=== PATIENT | female | born 1970 | race Caucasian/White ===

== ENCOUNTER → 2016-09-18 | Outpatient (CLI) | payer BC ==
[~2016-09-18] MED LIST: FLUO10CA48 PO; PRLSR20 PO; PROP60CA PO
[2016-09-18 17:36] LABS: BASO % 0.2 %; BASO ABS # 0.02 K/uL (0-0.2); COMPLETE YES; EOS % 1.4 %; HEMATOCRIT 36.2 % (37-47); IG% 0.2 %; LYMPH % 23.6 %; LYMPH ABS # 2.68 K/uL (1.2-3.4); MEAN CELL VOLUME 77.4 fL (80-100); MEAN CORPUSCULAR HEMOGLOBIN 24.8 pg (25-34); MEAN PLATELET VOLUME 9.8 fL (7.4-10.4); MONO % 7.9 %; NEUT % 66.7 %; PLATELET COUNT 351 K/uL (130-400); RED BLOOD COUNT 4.68 M/uL (4.2-5.4); WHITE BLOOD COUNT 11.35 K/uL (4.8-10.8)
[2016-09-18 20:42] LABS: LYME DISEASE AB IGG NEG (NEG); LYME DISEASE AB IGM NEG (NEG)
== END | disposition home or self-care (01) ==
LOC: C.LAB1850 16:32
PROVIDERS: ATTEND Family Medicine
DX: J01.90 Acute sinusitis, unspecified (principal); R52 Pain, unspecified

== ENCOUNTER → 2017-06-02 | Outpatient (CLI) | payer BC ==
--- NOTE | 2017-06-02 15:45 | MAMMOGRAPHY REPORT ---
BILATERAL DIGITAL SCREENING MAMMOGRAM TOMOSYNTHESIS WITH CAD: 06/02/2017 CLINICAL HISTORY: Routine screening. Patient has no complaints. TECHNIQUE: Breast tomosynthesis in addition to standard 2D mammography was performed. Current study was also evaluated with a Computer Aided Detection (CAD) system. COMPARISON: Comparison is made to exam dated: 03/02/2010 mammogram - [facility]. BREAST COMPOSITION: The tissue of both breasts is almost entirely fatty. FINDINGS: No suspicious mass, architectural distortion or cluster of microcalcifications is seen. IMPRESSION: ACR BI-RADS CATEGORY 1: NEGATIVE There is no mammographic evidence of malignancy. A 1 year screening mammogram is recommended. The pa tient will receive written notification of the results. Approximately 10% of breast cancers are not detected with mammography. A negative mammographic report should not delay biopsy if a clinically suggestive mass is present. Samantha knutson/penrad:06/02/2017 14:56:38 Paper Bags Sewing Machine Operator: Aurora BOWMAN(Kimberly)(Estrella)(BD), [facility] letter sent: Normal 1/2 BI-RADS Code: ACR BI-RADS Category 1: Negative
== END | disposition home or self-care (01) ==
LOC: C.MAMM 14:08
PROVIDERS: ATTEND Nurse Practitioner Family
DX: Z12.31 Encounter for screening mammogram for malignant neoplasm of breast (principal)

== ENCOUNTER → 2017-07-09 | Outpatient (CLI) | payer BC ==
[~2017-07-09] MED LIST changes: +OPTIRAY 320 IV PRN
--- NOTE | 2017-07-09 12:31 | DIAGNOSTIC IMAGING REPORT ---
ABD/PELVIS COMBO CLINICAL HISTORY: 46 years-old Female presenting with R10.31, concern for appendicitis versus diverticulitis versus renal stones. TECHNIQUE: Multidetector CT of the abdomen and pelvis was performed before and after the administration of intravenous contrast. IV contrast: 94 mL of Optiray 320. A dose lowering technique was used consistent with the principles of ALARA (as low as reasonably achievable). COMPARISON: 12/07/2013. CT DOSE (mGy.cm): The estimated cumulative dose is 2491.54 mGycm. FINDINGS: Mica Laminating Machine Feeder topogram: Unremarkable. Lung bases: Lung bases clear. Normal heart size. No pericardial or pleural effusion. Liver: Normal morphology. No liver lesion. Patent hepatic vasculature. Biliary: No intrahepatic or extrahepatic biliary ductal dilatation. Normal gallbladder. Pancreas: Normal. Spleen: Normal. Adrenal glands: Normal. Kidneys and ureters: Punctate nonobstructing calculus at the lower pole right kidney. Multiple nonobstructing left renal calculi in the interpolar region and lower pole measuring up to 5 mm. Thinning of the cortex along the posterior interpolar region of the left kidney could suggest reflux nephropathy or prior infection, infarct, or trauma. Few tiny hypodensities too small to characterize but likely cysts. Ureters normal. Bladder: Incompletely evaluated secondary to underdistention. Pelvic organs: Uterus surgically absent. Ovaries normal for age. Bowel: Moderate stool burden in the rectum. Appendix not visualized though no inflammatory changes evident in the right lower quadrant. No bowel wall thickening. No bowel obstruction. Peritoneal cavity: No free fluid or intraperitoneal gas. Lymph nodes: Few scattered subcentimeter lymph nodes noted in the right lower quadrant mesentery without associated inflammatory change. No enlarged lymph nodes in the abdomen or pelvis. Vasculature: Aorta and IVC patent and normal in caliber. Abdominal wall: Normal. Musculoskeletal: Normal. IMPRESSION: 1. No acute intra-abdominal pathology. 2. Bilateral nephrolithiasis. Electronically signed by: Lei Hargrove M.D. 07/09/2017 12:30 PM Dictated Date/Time: 07/09/2017 12:21 PM
== END | disposition home or self-care (01) ==
LOC: C.CTS 09:59
PROVIDERS: ATTEND Nurse Practitioner Family
DX: R10.31 Right lower quadrant pain (principal); N20.0 Calculus of kidney

== ENCOUNTER 2017-12-25 18:44 | Emergency (ER) | payer BC ==
[~2017-12-25] VITALS: Ht 170.2 cm; Wt 119.2 kg
[~2017-12-25 18:44] MED LIST changes: -OPTIRAY 320 IV PRN
[2017-12-25 18:51] VITALS: TEMP 36.7; Ht 170.2 cm; Wt 119.2 kg
[2017-12-25] MEDS ORDERED: KETOROLAC TROMETHAMINE 30 MG/ML VIAL IV STA (19:18)
[2017-12-25] MEDS ORDERED: SODIUM CHLORIDE 0.9% 1000ML 1,000 ML IV STA (19:18)
[2017-12-25] MEDS ORDERED: DEXAMETHASONE INJ 10 MG in SYRINGE 0 ML IV STA (19:18)
--- NOTE | 2017-12-25 19:18 | EMERGENCY ROOM VISIT NOTE ---
History Report prepared by Ananda: Paul Sprague Under the Supervision of: Dr. Chente Loco M.D. First contact with patient: 19:06 Chief Complaint: NEURO SYMPTOMS Stated Complaint: LEFT ARM TINGLING- REFERRED History of Present Illness The patient is a 46 year old female who presents to the Emergency Room with complaints of constant left shoulder pain beginning 8 hours ago. She currently rates her discomfort a 4/10 in severity. The patient states she was at work today when she developed pain in her left shoulder. She reports she thought it was just a pulled muscle. The patient notes she got up and tried stretching and walking. She states her arm began to tingle and she could not use her left hand very well. 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 She notes she was evaluated by her PCP and had some tests performed. The patient states she was told to come to the ED for further evaluation because her left side was weaker than her right. She reports she has a history of ocular migraines and kidney stones. The patient notes she takes propanol and Lexapro daily. She denies heavy lifting, recent manipulation by her chiropractor, headaches, and a history of diabetes. Source of History: patient Onset: 8 hours ago Position: shoulder (left) Symptom Intensity: 4/10 Timing: constant Associated Symptoms: No headache Note: Associated symptoms: tingling to her left arm and decreased movement of her left hand. Review of Systems See HPI for pertinent positives & negatives. A total of 10 systems reviewed and were otherwise negative. Past Medical & Surgical Medical Problems: (1) Uterine fibroid Family History Diabetes mellitus FH: heart disease Hypertension Kidney disease Kidney stones Social History Smoking Status: Never Smoker Alcohol Use: none Drug Use: none Marital Status: Occupation Status: employed Current/Historical Medications Scheduled Calcium Carbonate (Antacid) (Tums), 2 TABS PO PRN Prednisone (Prednisone Tab), 0 PO DAILY Propranolol (Inderal), 80 MG PO DAILY [Lexapro 30MG], 30 MG PO DAILY Scheduled PRN Hydroxyzine HCl (Hydroxyzine HCl), 20-30 MG PO HS PRN for Sleep Tamsulosin Hcl (Flomax), 0.4 MG PO PRN PRN for STONES Allergies Coded Allergies: Levofloxacin (Verified Allergy, Mild, RASH, 01/12/16) Erythromycin (Unverified Allergy, Unknown, GI SYMPTOMS, 01/12/16) Morphine (Verified Allergy, Unknown, 01/12/16) Onion (Unverified Allergy, Unknown, ., 01/12/16) Penicillins (Unverified Allergy, Unknown, 01/12/16) Physical Exam Vital Signs Date Time Temp Pulse Resp B/P (MAP) Pulse Ox O2 Delivery O2 Flow Rate FiO2 12/25/17 21:05 71 20 161/96 99 12/25/17 20:39 60 16 140/87 98 Room Air 12/25/17 19:44 63 20 107/74 98 65 136/81 70 140/80 12/25/17 19:43 98 Room Air 12/25/17 19:12 63 20 146/77 98 Room Air 12/25/17 19:12 99 Room Air 12/25/17 18:51 36.7 66 18 132/89 98 Room Air Physical Exam GENERAL: Awake, alert, well-appearing, in no acute distress HENT: Normocephalic, atraumatic. Oropharynx unremarkable. EYES: Normal conjunctiva. Sclera non-icteric. NECK: Supple. No nuchal rigidity. FROM. No JVD. RESPIRATORY: Clear to auscultation. CARDIAC: Regular rate, normal rhythm. Extremities warm and well perfused. Pulses equal. ABDOMEN: Soft, non-distended. No tenderness to palpation. No rebound or guarding. No masses. RECTAL: Deferred. MUSCULOSKELETAL: Chest examination reveals no tenderness. The back is symmetrical on inspection without obvious abnormality. There is no CVA tenderness to palpation. No joint edema. LOWER EXTREMITIES: Calves are equal size bilaterally and non-tender. No edema. No discoloration. NEURO: Normal sensorium. No sensory or motor deficits noted. 4/5 strength on the left upper extremity. SKIN: No rash or jaundice noted. Medical Decision & Procedures ER Provider Diagnostic Interpretation: Radiology results as stated below per my review and radiologist interpretation: THORACIC SPINE WITHOUT CT DOSE: 2366.33 mGy.cm HISTORY: Pain Pt c/o left sided neck T1 pain TECHNIQUE: Multiaxial CT images of the thoracic spine were performed and reformatted in the sagittal and coronal plane without the use of contrast. A dose lowering technique was utilized adhering to the principles of ALARA. COMPARISON: None. FINDINGS: No fractures. No subluxation. Paraspinal soft tissues are unremarkable. Minimal degenerative disc change throughout. No evidence for compression deformity. Posterior arch is intact at all levels IMPRESSION: Minimal degenerative disc change. No acute process. The above report was generated using voice recognition software. It may contain grammatical, syntax or spelling errors. Electronically signed by: Preston Gilman M.D. 12/25/2017 8:31 PM Dictated Date/Time: 12/25/2017 8:28 PM HEAD WITHOUT CONTRAST (CT) CT DOSE: HISTORY: Mental status change Pt c/o left side arm pain TECHNIQUE: Multiaxial CT images of the head were performed without the use of intravenous contrast. A dose lowering technique was utilized adhering to the principles of ALARA. Comparison: 12/24/2007 Findings: The paranasal sinuses and mastoid air cells are clear. The calvarium and skull base are intact. The ventricles and sulci are within normal limits. There is no mass, hematoma, midline shift, or acute infarct. Impression: No acute intracranial abnormality. The above report was generated using voice recognition software. It may contain grammatical, syntax or spelling errors. Electronically signed by: Preston Gilman M.D. 12/25/2017 8:25 PM Dictated Date/Time: 12/25/2017 8:24 PM CERVICAL SPINE W/O CT DOSE: HISTORY: Pain. Neuropathy. Pt c/o left sided neck pain TECHNIQUE: Multiaxial CT images of the cervical spine were performed and reformatted in the sagittal and coronal plane without the use of contrast. A dose lowering technique was utilized adhering to the principles of ALARA. COMPARISON: None. FINDINGS: Mild degenerative disc change C5-C6. Vertebral body stature is normal. No evidence for compression deformity. Posterior limits are intact. The prevertebral soft tissues are unremarkable. IMPRESSION: Mild degenerative disc change C5-C6. Otherwise negative study. The above report was generated using voice recognition software. It may contain grammatical, syntax or spelling errors. Electronically signed by: Preston Gilman M.D. 12/25/2017 8:27 PM Dictated Date/Time: 12/25/2017 8:25 PM Laboratory Results 12/25/17 19:25 Red Blood Count 4.72, Mean Corpuscular Volume 81.1, Mean Corpuscular Hemoglobin 27.5, Mean Corpuscular Hemoglobin Concent 33.9, Mean Platelet Volume 8.9, Neutrophils (%) (Auto) 55.6, Lymphocytes (%) (Auto) 33.1, Monocytes (%) (Auto) 9.7, Eosinophils (%) (Auto) 1.2, Basophils (%) (Auto) 0.2, Neutrophils # (Auto) 4.99, Lymphocytes # (Auto) 2.97, Monocytes # (Auto) 0.87, Eosinophils # (Auto) 0.11, Basophils # (Auto) 0.02 12/25/17 19:25 Test 12/25/17 19:25 12/25/17 19:52 12/25/17 20:35 White Blood Count 8.98 K/uL (4.8-10.8) Red Blood Count 4.72 M/uL (4.2-5.4) Hemoglobin 13.0 g/dL (12.0-16.0) Hematocrit 38.3 % (37-47) Mean Corpuscular Volume 81.1 fL (80-100) Mean Corpuscular Hemoglobin 27.5 pg (25-34) Mean Corpuscular Hemoglobin Concent 33.9 g/dl (32-36) Platelet Count 313 K/uL (130-400) Mean Platelet Volume 8.9 fL (7.4-10.4) Neutrophils (%) (Auto) 55.6 % Lymphocytes (%) (Auto) 33.1 % Monocytes (%) (Auto) 9.7 % Eosinophils (%) (Auto) 1.2 % Basophils (%) (Auto) 0.2 % Neutrophils # (Auto) 4.99 K/uL (1.4-6.5) Lymphocytes # (Auto) 2.97 K/uL (1.2-3.4) Monocytes # (Auto) 0.87 K/uL (0.11-0.59) Eosinophils # (Auto) 0.11 K/uL (0-0.5) Basophils # (Auto) 0.02 K/uL (0-0.2) RDW Standard Deviation 41.7 fL (36.4-46.3) RDW Coefficient of Variation 14.0 % (11.5-14.5) Immature Granulocyte % (Auto) 0.2 % Immature Granulocyte # (Auto) 0.02 K/uL (0.00-0.02) Anion Gap 4.0 mmol/L (3-11) Est Creatinine Clear Calc Drug Dose 90.2 ml/min Estimated GFR () 75.0 Estimated GFR (Non- 64.7 BUN/Creatinine Ratio 13.1 (10-20) Calcium Level 9.1 mg/dl (8.5-10.1) Total Bilirubin 0.4 mg/dl (0.2-1) Direct Bilirubin < 0.1 mg/dl (0-0.2) Aspartate Amino Transf (AST/SGOT) 11 U/L (15-37) Alanine Aminotransferase (ALT/SGPT) 15 U/L (12-78) Alkaline Phosphatase 114 U/L (45-117) Total Protein 8.0 gm/dl (6.4-8.2) Albumin 3.5 gm/dl (3.4-5.0) Thyroid Stimulating Hormone (TSH) 2.080 uIu/ml (0.300-4.500) Bedside Glucose 76 mg/dl (70-90) Urine Color YELLOW Urine Appearance CLEAR (CLEAR) Urine pH 5.0 (4.5-7.5) Urine Specific Cooper 1.021 (1.000-1.030) Urine Protein NEG (NEG) Urine Glucose (UA) NEG (NEG) Urine Ketones NEG (NEG) Urine Occult Blood NEG (NEG) Urine Nitrite NEG (NEG) Urine Bilirubin NEG (NEG) Urine Urobilinogen NEG (NEG) Urine Leukocyte Esterase NEG (NEG) Labs reviewed by ED physician. Medications Administered Medications (Trade) Dose Ordered Sig/Ruthann Route Start Time Stop Time Status Last Admin Dose Admin Ketorolac Tromethamine (Toradol Inj) 30 mg NOW STAT IV 12/25/17 19:18 12/25/17 19:22 DC 12/25/17 19:31 30 MG Dexamethasone Sodium Phosphate 10 mg/Syringe 2.5 ml @ 1 mls/min NOW STAT IV 12/25/17 19:18 12/25/17 19:22 DC 12/25/17 19:18 1 MLS/MIN Sodium Chloride 1,000 ml @ 999 mls/hr Q1H1M STAT IV 12/25/17 19:18 12/25/17 20:18 DC 12/25/17 19:30 999 MLS/HR Dexamethasone Sodium Phosphate (Dexamethasone Inj Pf) 10 mg STK-MED ONCE .ROUTE 12/25/17 19:34 12/25/17 19:35 DC 12/25/17 19:34 10 MG ECG Per My Interpretation Indication: weakness Rate (beats per minute): 62 Rhythm: normal sinus Findings: other (No ST elevation or depression. Normal axis. ) ED Course 1908: Past medical records reviewed. The patient was evaluated in room A11B. A complete history and physical examination was performed. 1917: Ordered Sodium Chloride 1000 ml @ 999 mls/hr IV, Dexamethasone Sodium Phosphate 10 mg/Syringe 2.5ml @ 1 mls/min, Ketorolac Tromethamine 30mg IV 1933: Ordered Dexamethasone Sodium Phosphate 10 mg IV 2044: Upon reexamination the patient is resting. I completed another physical examination. The patient now has 5/5 strength bilaterally to the upper extremities. I discussed results and treatment plan with the patient. She verbalizes agreement and understanding. The patient is ready for discharge. Medical Decision Differential diagnosis: Etiologies such as fracture, dislocation, neurovascular compromise, compartment syndrome, soft tissue injury, as well as others were entertained. This is a 46-year-old female who presents emergency department complaining of left arm weakness. This appears to be muscle skeletal in nature and the patient can pinpoint a point between her neck as well as her left shoulder where the pain seems to radiate down her arm. Based on this the patient was sent for CAT scan of the head spine as well as thoracic spine. 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 The patient was given Toradol as well as Decadron in the emergency department. Repeat examination revealed total improvement in the patient's symptoms. Based on these findings I feel the patient can be safely discharged home for follow-up with orthopedics. I will place the patient on a prednisone taper and stressed anti- inflammatory in the meanwhile. Patient was in agreement with the treatment plan. Medication Reconcilliation Current Medication List: was personally reviewed by me Blood Pressure Screening Patient's blood pressure: Normal blood pressure Blood pressure disposition: Did not require urgent referral Impression Primary Impression: Arm pain, left Scribe Attestation The scribe's documentation has been prepared under my direction and personally reviewed by me in its entirety. I confirm that the note above accurately reflects all work, treatment, procedures, and medical decision making performed by me. Departure Information Dispostion Home / Self-Care Prescriptions Prednisone (Prednisone Tab) 20 Mg Tab 0 PO DAILY, #7 TAB 2 TABS DAILY FOR 2 DAYS, THEN 1 TAB DAILY FOR 2 DAYS, THEN 1/2 TAB DAILY FOR 2 DAYS. Prov: Chente Loco MD 12/25/17 Referrals Frank Arriaga M.D. (PCP) Jason Miramontes, DO Forms HOME CARE DOCUMENTATION FORM, IMPORTANT VISIT INFORMATION, WORK / SCHOOL INSTRUCTIONS Patient Instructions My [facility], Neck Probs Additional Instructions Follow up with Dr Miramontes's office Take 600 mg Ibuprofen every 6 hours or Aleve as directed You have been examined and treated today on an emergency basis only. This is not a substitute for, or an effort to provide, complete comprehensive medical care. It is impossible to recognize and treat all injuries or illnesses in a single emergency department visit. It is therefore important that you follow up closely with Dr Arriaga. Call as soon as possible for an appointment. Thank you for your time and consideration. I look forward to speaking with you again soon. Please don't hesitate to call us if you have any questions.
[2017-12-25] MEDS ORDERED: DEXAMETHASONE **PF** INJ 10 MG/ML VIAL ONE (19:34)
[2017-12-25 19:43] VITALS: O2SAT 98
[2017-12-25 19:50] LABS: BASO % 0.2 %; BASO ABS # 0.02 K/uL (0-0.2); EOS % 1.2 %; EOS ABS # 0.11 K/uL (0-0.5); HEMATOCRIT 38.3 % (37-47); IG# 0.02 K/uL (0.00-0.02); LYMPH % 33.1 %; LYMPH ABS # 2.97 K/uL (1.2-3.4); MEAN CELL VOLUME 81.1 fL (80-100); MEAN CORPUSCULAR HEMOGLOBIN 27.5 pg (25-34); MEAN CORPUSCULAR HGB CONC 33.9 g/dl (32-36); MEAN PLATELET VOLUME 8.9 fL (7.4-10.4); MONO % 9.7 %; MONO ABS # 0.87 K/uL (0.11-0.59); NEUT % 55.6 %; NEUT ABS # 4.99 K/uL (1.4-6.5); PLATELET COUNT 313 K/uL (130-400); RED CELL DISTRIBUTION WIDTH SD 41.7 fL (36.4-46.3); WHITE BLOOD COUNT 8.98 K/uL (4.8-10.8)
[2017-12-25] MEDS ORDERED: LEXAPRO 30 MG PO (20:01)
[2017-12-25] MEDS ORDERED: PROP80TA2 PO (20:01)
[2017-12-25] MEDS ORDERED: CALC500C50 PO (20:01)
[2017-12-25] MEDS ORDERED: TAMS0.4C38 PO (20:02)
[2017-12-25] MEDS ORDERED: ATR10 PO (20:04)
[2017-12-25 20:10] LABS: ALBUMIN 3.5 gm/dl (3.4-5.0); ALT/SGPT 15 U/L (12-78); AST/SGOT 11 U/L (15-37); BLOOD UREA NITROGEN 14 mg/dl (7-18); CALCIUM 9.1 mg/dl (8.5-10.1); CARBON DIOXIDE 27 mmol/L (21-32); CREATININE 1.03 mg/dl (0.60-1.20); GLUCOSE 88 mg/dl (70-99); SODIUM 137 mmol/L (136-145)
--- NOTE | 2017-12-25 20:26 | DIAGNOSTIC IMAGING REPORT ---
HEAD WITHOUT CONTRAST (CT) CT DOSE: HISTORY: Mental status change Pt c/o left side arm pain TECHNIQUE: Multiaxial CT images of the head were performed without the use of intravenous contrast. A dose lowering technique was utilized adhering to the principles of ALARA. Comparison: 12/24/2007 Findings: The paranasal sinuses and mastoid air cells are clear. The calvarium and skull base are intact. The ventricles and sulci are within normal limits. There is no mass, hematoma, midline shift, or acute infarct. Impression: No acute intracranial abnormality. The above report was generated using voice recognition software. It may contain grammatical, syntax or spelling errors. Electronically signed by: Preston Gilman M.D. 12/25/2017 8:25 PM Dictated Date/Time: 12/25/2017 8:24 PM
--- NOTE | 2017-12-25 20:29 | DIAGNOSTIC IMAGING REPORT ---
CERVICAL SPINE W/O CT DOSE: HISTORY: Pain. Neuropathy. Pt c/o left sided neck pain TECHNIQUE: Multiaxial CT images of the cervical spine were performed and reformatted in the sagittal and coronal plane without the use of contrast. A dose lowering technique was utilized adhering to the principles of ALARA. COMPARISON: None. FINDINGS: Mild degenerative disc change C5-C6. Vertebral body stature is normal. No evidence for compression deformity. Posterior limits are intact. The prevertebral soft tissues are unremarkable. IMPRESSION: Mild degenerative disc change C5-C6. Otherwise negative study. The above report was generated using voice recognition software. It may contain grammatical, syntax or spelling errors. Electronically signed by: Preston Gilman M.D. 12/25/2017 8:27 PM Dictated Date/Time: 12/25/2017 8:25 PM
[2017-12-25 20:31] LABS: ALKALINE PHOSPHATASE 114 U/L (45-117)
--- NOTE | 2017-12-25 20:32 | DIAGNOSTIC IMAGING REPORT ---
THORACIC SPINE WITHOUT CT DOSE: 2366.33 mGy.cm HISTORY: Pain Pt c/o left sided neck T1 pain TECHNIQUE: Multiaxial CT images of the thoracic spine were performed and reformatted in the sagittal and coronal plane without the use of contrast. A dose lowering technique was utilized adhering to the principles of ALARA. COMPARISON: None. FINDINGS: No fractures. No subluxation. Paraspinal soft tissues are unremarkable. Minimal degenerative disc change throughout. No evidence for compression deformity. Posterior arch is intact at all levels IMPRESSION: Minimal degenerative disc change. No acute process. The above report was generated using voice recognition software. It may contain grammatical, syntax or spelling errors. Electronically signed by: Preston Gilman M.D. 12/25/2017 8:31 PM Dictated Date/Time: 12/25/2017 8:28 PM
[2017-12-25] MEDS ORDERED: PRED20TA2 PO (20:49)
[2017-12-25 21:05] VITALS: BP 161/96; PULSE 71; O2SAT 99
== END 2017-12-25 21:06 | disposition home or self-care (01) ==
LOC: C.EDB 18:46 → C.EDA 21:06
DX: M25.512 Pain in left shoulder (principal); Z87.442 Personal history of urinary calculi; Z79.899 Other long term (current) drug therapy; Z83.3 Family history of diabetes mellitus; Z82.49 Family history of ischemic heart disease and other diseases of the circulatory system; Z84.1 Family history of disorders of kidney and ureter; Z88.1 Allergy status to other antibiotic agents; Z88.5 Allergy status to narcotic agent; Z88.0 Allergy status to penicillin; Z91.018 Allergy to other foods

== ENCOUNTER 2018-12-30 06:56 | Observation (INO) ==
--- OUTSIDE RECORDS SUMMARY | 2018-12-30 06:59 | External Medical Summary | Continuity of Care Document ---
:1970 Author Name Sharron Oliver, Provider Address Unavailable Unavailable , Care Team Providers Name Role Phone Guerrero Martinez [email or web address] [place] Unavailable Unavailable Unavailable Unavailable Unavailable Problems Encounter for routine gynecological examination (V72.31) (Z0 1.419) Hearing loss (389.9) (H91.90) Female pelvic pain (625.9) (R10.2) Menorrhagia with irregular cycle (626.2) (N92.1) Hot flashes (782.62) (R23.2) Migraine headache (346.90) (G43.909) Arthritis (716.90) (M19.90) Nephrolithiasis (592.0) (N20.0) Psychological disorder (300.9) (F99) Hyperlipidemia (272.4) (E78.5) Functional Status Hearing loss Allergies and Adverse Reactions Erythromycin Base TABS (Allergy) Levaquin TABS (Allergy) Morphine Sulfate SOLN (Allergy) Penicillins (Allergy) Zoloft (Allergy) Shellfish (Allergy) Medications Tamsulosin HCl - 0.4 MG Oral Capsule; TAKE 1 CAPSULE B Benito Gallego Start: 08-Aug-2017 Quantity: 30 Refills: 3 Lexapro TABS Refills: 0 Propranolol HCl - 20 MG Oral Tablet Refills: 0 Naproxen TABS Refills: 0 Procedures History of Exploratory Laparoscopy Statu s: Completed History of Tubal Ligation Status: Comple kannan History of hysterectomy Status: Complete d History of ganglion cyst excision Status : Completed Immunizations Immunizations not documented Family History Unknown Family Member Family history of hypertension (V17.49) Status: Active Comments: Family History (Z82.49) Family history of kidney disease (V18.69) Status: Active Comments: Family History (Z84.1) Mother Family history of diabetes mellitus (V18.0) (Z83.3) Status: Active Social History - Smoking Status Never smoker Never smoker Plan of Treatment Planned Observations Planned Goals not documented Results No Known Results Results not documented Encounters Appointment; Guerrero Martinez M.D. 08-Aug-2017 11:00 Encounter Diagnosis: Problem not documented Appointment; Guerrero Martinez M.D. 17-Dec-2017 9:50 Encounter Diagnosis: Problem not documented
[2018-12-30] MEDS ORDERED: ONDANSETRON INJ 2 MG/ML 2 ML VIAL IV STA (07:11)
[2018-12-30] MEDS ORDERED: GI COCKTAIL ED USE PO ONE (07:11)
[2018-12-30] MEDS ORDERED: PANTOprazole 40 MG TAB PO STA (07:11)
[2018-12-30] MEDS ORDERED: SODIUM CHLORIDE 0.9% 500 ML IV SCH ×2 (07:15→09:00)
[2018-12-30 07:24] LABS: Basophils # (auto) 0.02 K/uL (0-0.2); Basophils % (auto) 0.2 %; Eosinophils # (auto) 0.13 K/uL (0-0.5); Eosinophils % (auto) 1.4 %; Hematocrit (blood only) 40.5 % (37-47); Hemoglobin 13.6 g/dL (12.0-16.0); Immature Granulocytes # (auto) 0.02 K/uL (0.00-0.02); Immature Granulocytes % (auto) 0.2 %; Lymphocytes # (auto) 1.84 K/uL (1.2-3.4); Lymphocytes % (auto) 19.1 %; Mean Corpuscular Hgb Conc 33.6 g/dL (32-36); Mean Corpuscular Volume 82.7 fL (80-100); Mean Platelet Volume 9.3 fL (7.4-10.4); Monocytes # (auto) 0.76 K/uL (0.11-0.59); Monocytes % (auto) 7.9 %; Neutrophils # (auto) 6.84 K/uL (1.4-6.5); Neutrophils % (auto) 71.2 %; Platelet Count 354 K/uL (130-400); RDW Coefficient of Variation 14.6 % (11.5-14.5); RDW Standard Deviation 44.1 fL (36.4-46.3); White Blood Count 9.61 K/uL (4.8-10.8)
--- NOTE | 2018-12-30 07:34 | XRay Report ---
SINGLE VIEW CHEST CLINICAL HISTORY: Atypical chest pain. FINDINGS: An AP, portable, upright chest radiograph is compared to study dated 09/10/2018. The cardiom ediastinal silhouette is unremarkable. There is mild bibasilar atelectasis. The lungs and pleural spa rodolfo are otherwise clear. No pneumothorax is seen. The bony thorax is grossly intact. IMPRESSION: No active disease in the chest. Electronically signed by: Mario Allen M.D. 12/30/2018 7:33 AM
[2018-12-30 07:37] LABS: INR 0.9 (0.9-1.1); Partial Thromboplastin Ratio 1.1; Partial Thromboplastin Time 28.9 Seconds (21.0-31.0); Prothrombin Time 9.7 Seconds (9.0-12.0)
[2018-12-30 07:40] LABS: Alanine Aminotransferase 23 U/L (12-78); Albumin Level 3.6 gm/dl (3.4-5.0); Aspartate Aminotransferase 16 U/L (15-37); Blood Urea Nitrogen 12 mg/dl (7-18); Calcium 9.5 mg/dl (8.5-10.1); Carbon Dioxide 29 mmol/L (21-32); Chloride 104 mmol/L (98-107); Est GFR (African American) 89.4; Est GFR (Non-African American) 77.2; Glucose 99 mg/dl (70-99); Potassium 4.5 mmol/L (3.5-5.1); Sodium 135 mmol/L (136-145)
--- NOTE | 2018-12-30 07:43 | XRay Report ---
KUB CLINICAL HISTORY: Abdominal pain. COMPARISON STUDY: CT of the abdomen and pelvis July 09, 2017. FINDINGS: Several left renal calculi measure up to 4 mm. A left pelvic calcification was shown to rep resent a phlebolith on prior CT. The bowel gas pattern is normal. IMPRESSION: 1. Left-sided nephrolithiasis. 2. No ureteral calculi identified. 2. No evidence for a bowel obstruction. Electronically signed by: Daniel Chicas M.D. 12/30/2018 7:42 AM
[2018-12-30 07:45] LABS: Albumin Globulin Ratio 0.8 (0.9-2); Alkaline Phosphatase 122 U/L (45-117); Bilirubin,Total 0.3 mg/dl (0.2-1); Globulin 4.5 gm/dl (2.5-4.0); Total Protein 8.1 gm/dl (6.4-8.2); Troponin I < 0.015 ng/ml (0-0.045)
[2018-12-30] MEDS ORDERED: fentaNYL citrate 100 MCG/2 ML VIAL IV STA (07:58)
[2018-12-30] MEDS ORDERED: PROMETHAZINE 12.5 MG/50.5 ML BAG IV STA (07:58)
[2018-12-30 08:29] LABS: Appearance Urine Clear (Clear); Bilirubin Urine Negative (Negative); Blood Urine Negative (Negative); Color Urine Yellow; Glucose Urine UA Negative (Negative); Ketones Urine Negative (Negative); Leukocyte Esterase Urine Negative (Negative); Nitrite Urine Negative (Negative); Protein Urine Negative (Negative); Specific Gravity Urine 1.017 (1.000-1.030); Urobilinogen Urine Negative (Negative)
--- NOTE | 2018-12-30 09:26 | CT Scan Report ---
CT OF THE ABDOMEN AND PELVIS WITHOUT CONTRAST CLINICAL HISTORY: Right flank pain. COMPARISON STUDY: CT of the abdomen and pelvis July 09, 2017. KUB performed earlier today. TECHNIQUE: Axial images of the abdomen and pelvis were obtained without IV contrast. Images were revi ewed in the axial, sagittal, and coronal planes. Automated exposure control was utilized for the stephane dy. A dose lowering technique was utilized adhering to the principles of ALARA. FINDINGS: Lung bases are clear. There are multiple bilateral renal calculi that measure up to 6 mm. T here is no hydronephrosis or hydroureter. No ureteral calculi are identified. Evaluation of the remai nder of the abdomen and pelvis is suboptimal on this unenhanced exam. The liver, spleen, adrenal glan ds and pancreas are unremarkable. Gallstones are noted within the gallbladder. The gallbladder is mil dly distended. There is slight indistinctness of the gallbladder wall. There may be minimal perichole cystic infiltration. There is no biliary or pancreatic ductal dilatation. There is no evidence for a bowel obstruction. The appendix is normal. There is no lymphadenopathy or ascites. No suspicious skel etal lesions are present. IMPRESSION: 1. Cholelithiasis, mild gallbladder distention and minimal pericholecystic infiltration. These findin gs suggest acute cholecystitis. 2. Bilateral nephrolithiasis. No ureteral calculi. Electronically signed by: Daniel Chicas M.D. 12/30/2018 9:24 AM
[2018-12-30] MEDS ORDERED: cefOXitin 1,000 MG/50 ML BAG IV STA (09:46)
--- NOTE | 2018-12-30 10:06 | Emergency Department Note ---
Entered by Stephanie Butler acting as a scribe for Jose Antonio Allen DO History of Present Illness General Chief complaint: Chest Pain Stated complaint: CHEST PAIN-ABDOMINAL AND BACK PAIN Time Seen by Provider: 12/30/18 07:04 Source: patient History of Present Illness Provider complaint: chest pain Onset (ago): hour(s) (2300 last night) Location: chest Pain Consistency: + constant Maximum Pain Intensity: 9 Quality: + other (pain) Associated symptoms: + other (abdominal pain, back pain) The patient is a 48 year old female who presents to the Emergency Department with complaints of constant chest pain beginning at 2300 last night. The patient rates her pain at a 9/10. She also reports that she had abdominal pain. She states that she took Tums for her pain and 2 Ibuprofen. The patient states that she tried laying down and sitting up but states that nothing helped to alleviate her pain. The patient also reports that she developed back pain. The patient denies any black or bloody stools. She states that she had similar pain before and reports that at this time she had inflammation in her chest. The patient denies a history of other heart problems. The patient states that she had a stress test done 2 years ago. She states that she had the stomach flu twice but states that she has felt fine over the last 2 weeks. The patient reports a history of a hysterectomy but denies a history of a cholecystectomy. Home Medications Home Medications Medication Instructions Recorded Confirmed Type escitalopram oxalate 20 mg PO DAILY 12/30/18 12/30/18 History naproxen 500 mg PO BID PRN 12/30/18 12/30/18 History propranolol 80 mg PO DAILY 12/30/18 12/30/18 History Allergies Allergy/AdvReac Type Severity Reaction Status Date / Time shellfish derived Allergy Severe Anaphylaxis Verified 12/30/18 17:17 levofloxacin Allergy Mild RASH Verified 12/30/18 07:56 onion Allergy Mild Hives Unverified 12/30/18 17:17 erythromycin base Allergy Unknown GI SYMPTOMS Unverified 12/30/18 07:56 morphine Allergy Unknown ill Verified 12/30/18 07:56 Penicillins Allergy Unknown swelling Unverified 12/30/18 07:56 Past Med/Surg History Medical History Renal colic (Acute) Morbid obesity Surgical History H/O: hysterectomy (Resolved) Social History Preferred Language: Israeli Communication Ability: Effective Cone Treater Required: No Beliefs That Will Affect Care: None Current Living Situation: Spouse Other Information That Helps Us Care for You: Yes (no onions or seafood) Feels Safe at Home: Yes Smoking Status: Never smoker Do You Dip or Chew Tobacco: No Second Hand Exposure: No Hx Alcohol Use: Yes Alcohol type: beer, wine and hard liquor Hx Substance Use: No Review of Systems See HPI for pertinent positives & negatives. and A total of 10 systems reviewed and were otherwise negative Physical Exam Vital Signs Vital Signs - 24 hr 12/30/18 06:58 12/30/18 07:02 12/30/18 07:06 Temperature 36.7 C Temperature Source Oral Sepsis Recent Fever Within 48 Hours No Sepsis Action Taken by Nursing No Action Required Pulse Rate 62 66 67 Pulse Rate [Apical] Pulse Rate [Right Finger] Pulse Rate from SpO2 Sensor 65 67 Pulse Rhythm Pulse Rhythm [Apical] Pulse Rhythm [Right Finger] Pulse Strength [Apical] Pulse Strength [Right Finger] Respiratory Rate 12 13 16 Respiratory Effort / Characteristics Non-Labored Respiratory Depth Normal Respiratory Pattern Blood Pressure 189/102 H 189/102 H Blood Pressure [Right Arm] Blood Pressure Mean 131 131 Blood Pressure Mean [Right Arm] Blood Pressure Position [Right Arm] Pulse Oximetry 100 100 100 Oxygen Delivery Method Room Air Oxygen Flow Rate 12/30/18 07:11 12/30/18 07:15 12/30/18 07:17 Temperature Temperature Source Sepsis Recent Fever Within 48 Hours Sepsis Action Taken by Nursing Pulse Rate 61 60 Pulse Rate [Apical] 60 Pulse Rate [Right Finger] Pulse Rate from SpO2 Sensor 61 60 Pulse Rhythm Pulse Rhythm [Apical] Regular Pulse Rhythm [Right Finger] Pulse Strength [Apical] Normal Pulse Strength [Right Finger] Respiratory Rate 16 13 18 Respiratory Effort / Characteristics Non-Labored Respiratory Depth Normal Respiratory Pattern Blood Pressure 162/99 H Blood Pressure [Right Arm] 162/99 H Blood Pressure Mean 120 Blood Pressure Mean [Right Arm] 120 Blood Pressure Position [Right Arm] Lying Pulse Oximetry 100 100 100 Oxygen Delivery Method Room Air Oxygen Flow Rate 12/30/18 07:19 12/30/18 07:30 12/30/18 07:32 Temperature Temperature Source Sepsis Recent Fever Within 48 Hours Sepsis Action Taken by Nursing Pulse Rate 62 65 63 Pulse Rate [Apical] Pulse Rate [Right Finger] Pulse Rate from SpO2 Sensor 66 65 Pulse Rhythm Regular Pulse Rhythm [Apical] Pulse Rhythm [Right Finger] Pulse Strength [Apical] Pulse Strength [Right Finger] Respiratory Rate 16 17 17 Respiratory Effort / Characteristics Respiratory Depth Respiratory Pattern Blood Pressure 176/111 H Blood Pressure [Right Arm] Blood Pressure Mean 132 Blood Pressure Mean [Right Arm] Blood Pressure Position [Right Arm] Pulse Oximetry 100 99 99 Oxygen Delivery Method Room Air Oxygen Flow Rate 12/30/18 07:34 12/30/18 07:45 12/30/18 08:00 Temperature Temperature Source Sepsis Recent Fever Within 48 Hours Sepsis Action Taken by Nursing Pulse Rate 60 84 61 Pulse Rate [Apical] 60 84 Pulse Rate [Right Finger] Pulse Rate from SpO2 Sensor 61 83 62 Pulse Rhythm Pulse Rhythm [Apical] Regular Regular Pulse Rhythm [Right Finger] Pulse Strength [Apical] Normal Normal Pulse Strength [Right Finger] Respiratory Rate 13 18 17 Respiratory Effort / Characteristics Non-Labored Non-Labored Respiratory Depth Normal Normal Respiratory Pattern Blood Pressure 179/118 H 195/108 H Blood Pressure [Right Arm] 179/118 H 195/108 H Blood Pressure Mean 138 137 Blood Pressure Mean [Right Arm] 138 137 Blood Pressure Position [Right Arm] Lying Lying Pulse Oximetry 100 99 99 Oxygen Delivery Method Room Air Room Air Oxygen Flow Rate 12/30/18 08:15 12/30/18 08:30 12/30/18 08:31 Temperature Temperature Source Sepsis Recent Fever Within 48 Hours Sepsis Action Taken by Nursing Pulse Rate 79 73 71 Pulse Rate [Apical] 71 Pulse Rate [Right Finger] Pulse Rate from SpO2 Sensor 79 73 72 Pulse Rhythm Pulse Rhythm [Apical] Regular Pulse Rhythm [Right Finger] Pulse Strength [Apical] Normal Pulse Strength [Right Finger] Respiratory Rate 11 L 18 12 Respiratory Effort / Characteristics Non-Labored Respiratory Depth Normal Respiratory Pattern Blood Pressure 166/101 H Blood Pressure [Right Arm] 166/101 H Blood Pressure Mean 122 Blood Pressure Mean [Right Arm] 122 Blood Pressure Position [Right Arm] Lying Pulse Oximetry 95 93 97 Oxygen Delivery Method Room Air Oxygen Flow Rate 12/30/18 08:45 12/30/18 09:07 12/30/18 09:15 Temperature Temperature Source Sepsis Recent Fever Within 48 Hours Sepsis Action Taken by Nursing Pulse Rate 71 67 66 Pulse Rate [Apical] 67 Pulse Rate [Right Finger] Pulse Rate from SpO2 Sensor 71 66 67 Pulse Rhythm Pulse Rhythm [Apical] Regular Pulse Rhythm [Right Finger] Pulse Strength [Apical] Normal Pulse Strength [Right Finger] Respiratory Rate 17 16 15 Respiratory Effort / Characteristics Non-Labored Respiratory Depth Normal Respiratory Pattern Blood Pressure 166/97 H Blood Pressure [Right Arm] 166/97 H Blood Pressure Mean 120 Blood Pressure Mean [Right Arm] 120 Blood Pressure Position [Right Arm] Lying Pulse Oximetry 95 99 95 Oxygen Delivery Method Room Air Oxygen Flow Rate 12/30/18 09:30 12/30/18 09:31 12/30/18 09:45 Temperature Temperature Source Sepsis Recent Fever Within 48 Hours Sepsis Action Taken by Nursing Pulse Rate 65 65 68 Pulse Rate [Apical] 65 Pulse Rate [Right Finger] Pulse Rate from SpO2 Sensor 65 65 68 Pulse Rhythm Pulse Rhythm [Apical] Regular Pulse Rhythm [Right Finger] Pulse Strength [Apical] Normal Pulse Strength [Right Finger] Respiratory Rate 16 16 17 Respiratory Effort / Characteristics Non-Labored Respiratory Depth Normal Respiratory Pattern Blood Pressure 157/88 H Blood Pressure [Right Arm] 157/88 H Blood Pressure Mean 111 Blood Pressure Mean [Right Arm] 111 Blood Pressure Position [Right Arm] Lying Pulse Oximetry 97 97 94 Oxygen Delivery Method Room Air Oxygen Flow Rate 12/30/18 10:02 12/30/18 10:03 12/30/18 10:10 Temperature Temperature Source Sepsis Recent Fever Within 48 Hours Sepsis Action Taken by Nursing Pulse Rate 62 59 L Pulse Rate [Apical] 61 59 L Pulse Rate [Right Finger] Pulse Rate from SpO2 Sensor 60 Pulse Rhythm Pulse Rhythm [Apical] Regular Regular Pulse Rhythm [Right Finger] Pulse Strength [Apical] Normal Normal Pulse Strength [Right Finger] Respiratory Rate 13 16 19 Respiratory Effort / Characteristics Non-Labored Non-Labored Respiratory Depth Normal Normal Respiratory Pattern Blood Pressure 157/88 H Blood Pressure [Right Arm] 157/88 H 157/88 H Blood Pressure Mean 111 Blood Pressure Mean [Right Arm] 111 111 Blood Pressure Position [Right Arm] Lying Lying Pulse Oximetry 97 99 Oxygen Delivery Method Room Air Room Air Oxygen Flow Rate 12/30/18 10:15 12/30/18 10:30 12/30/18 10:31 Temperature Temperature Source Sepsis Recent Fever Within 48 Hours Sepsis Action Taken by Nursing Pulse Rate 64 66 63 Pulse Rate [Apical] 63 Pulse Rate [Right Finger] Pulse Rate from SpO2 Sensor 63 65 62 Pulse Rhythm Pulse Rhythm [Apical] Regular Pulse Rhythm [Right Finger] Pulse Strength [Apical] Normal Pulse Strength [Right Finger] Respiratory Rate 21 18 12 Respiratory Effort / Characteristics Non-Labored Respiratory Depth Normal Respiratory Pattern Blood Pressure 158/98 H Blood Pressure [Right Arm] 158/98 H Blood Pressure Mean 118 Blood Pressure Mean [Right Arm] 118 Blood Pressure Position [Right Arm] Lying Pulse Oximetry 100 93 98 Oxygen Delivery Method Room Air Oxygen Flow Rate 12/30/18 10:45 12/30/18 11:00 12/30/18 11:01 Temperature Temperature Source Sepsis Recent Fever Within 48 Hours Sepsis Action Taken by Nursing Pulse Rate 64 64 62 Pulse Rate [Apical] 62 Pulse Rate [Right Finger] Pulse Rate from SpO2 Sensor 65 63 63 Pulse Rhythm Pulse Rhythm [Apical] Regular Pulse Rhythm [Right Finger] Pulse Strength [Apical] Normal Pulse Strength [Right Finger] Respiratory Rate 17 18 15 Respiratory Effort / Characteristics Non-Labored Respiratory Depth Normal Respiratory Pattern Blood Pressure 156/98 H Blood Pressure [Right Arm] 156/98 H Blood Pressure Mean 117 Blood Pressure Mean [Right Arm] 117 Blood Pressure Position [Right Arm] Lying Pulse Oximetry 99 99 98 Oxygen Delivery Method Room Air Oxygen Flow Rate 12/30/18 11:15 12/30/18 11:30 12/30/18 11:32 Temperature Temperature Source Sepsis Recent Fever Within 48 Hours Sepsis Action Taken by Nursing Pulse Rate 64 64 61 Pulse Rate [Apical] 61 Pulse Rate [Right Finger] Pulse Rate from SpO2 Sensor 61 Pulse Rhythm Pulse Rhythm [Apical] Regular Pulse Rhythm [Right Finger] Pulse Strength [Apical] Normal Pulse Strength [Right Finger] Respiratory Rate 17 15 16 Respiratory Effort / Characteristics Non-Labored Respiratory Depth Normal Respiratory Pattern Blood Pressure 169/99 H Blood Pressure [Right Arm] 169/99 H Blood Pressure Mean 122 Blood Pressure Mean [Right Arm] 122 Blood Pressure Position [Right Arm] Lying Pulse Oximetry 100 Oxygen Delivery Method Room Air Oxygen Flow Rate 12/30/18 12:04 12/30/18 12:24 12/30/18 13:51 Temperature 36.7 C 36.9 C 36.4 C L Temperature Source Oral Oral Temporal Artery Scan Sepsis Recent Fever Within 48 Hours Sepsis Action Taken by Nursing Pulse Rate 61 Pulse Rate [Apical] 64 68 Pulse Rate [Right Finger] Pulse Rate from SpO2 Sensor Pulse Rhythm Pulse Rhythm [Apical] Regular Regular Pulse Rhythm [Right Finger] Pulse Strength [Apical] Normal Pulse Strength [Right Finger] Respiratory Rate 16 18 13 Respiratory Effort / Characteristics Non-Labored Spontaneous Non-Labored Spontaneous Respiratory Depth Normal Normal Respiratory Pattern Regular Regular Blood Pressure 169/99 H Blood Pressure [Right Arm] 156/97 H 154/75 H Blood Pressure Mean Blood Pressure Mean [Right Arm] 116 101 Blood Pressure Position [Right Arm] Sitting Semi-fowlers Pulse Oximetry 100 98 100 Oxygen Delivery Method Room Air Room Air Oxymask Oxygen Flow Rate 10 12/30/18 14:00 12/30/18 14:10 12/30/18 14:20 Temperature Temperature Source Sepsis Recent Fever Within 48 Hours Sepsis Action Taken by Nursing Pulse Rate Pulse Rate [Apical] 67 66 64 Pulse Rate [Right Finger] Pulse Rate from SpO2 Sensor Pulse Rhythm Pulse Rhythm [Apical] Regular Regular Regular Pulse Rhythm [Right Finger] Pulse Strength [Apical] Pulse Strength [Right Finger] Respiratory Rate 13 19 15 Respiratory Effort / Characteristics Non-Labored Spontaneous Non-Labored Spontaneous Non-Labored Spontaneous Respiratory Depth Normal Normal Normal Respiratory Pattern Regular Regular Regular Blood Pressure Blood Pressure [Right Arm] 141/94 H 138/85 137/82 Blood Pressure Mean Blood Pressure Mean [Right Arm] 109 102 100 Blood Pressure Position [Right Arm] Semi-fowlers Semi-fowlers Semi-fowlers Pulse Oximetry 100 100 100 Oxygen Delivery Method Oxymask Oxymask Nasal Cannula Oxygen Flow Rate 10 5 2 12/30/18 14:24 12/30/18 14:30 12/30/18 15:20 Temperature 36.8 C 36.8 C 36.6 C Temperature Source Temporal Artery Scan Temporal Artery Scan Oral Sepsis Recent Fever Within 48 Hours Sepsis Action Taken by Nursing Pulse Rate Pulse Rate [Apical] 67 64 63 Pulse Rate [Right Finger] Pulse Rate from SpO2 Sensor Pulse Rhythm Pulse Rhythm [Apical] Regular Regular Pulse Rhythm [Right Finger] Pulse Strength [Apical] Pulse Strength [Right Finger] Respiratory Rate 16 20 17 Respiratory Effort / Characteristics Non-Labored Spontaneous Non-Labored Spontaneous Respiratory Depth Normal Normal Respiratory Pattern Regular Regular Blood Pressure Blood Pressure [Right Arm] 140/75 142/84 H 157/85 H Blood Pressure Mean Blood Pressure Mean [Right Arm] 96 103 109 Blood Pressure Position [Right Arm] Lying Lying Lying Pulse Oximetry 100 100 98 Oxygen Delivery Method Nasal Cannula Nasal Cannula Room Air Oxygen Flow Rate 2 2 12/30/18 15:50 12/30/18 16:48 12/30/18 17:50 Temperature 36.4 C L Temperature Source Oral Sepsis Recent Fever Within 48 Hours Sepsis Action Taken by Nursing Pulse Rate Pulse Rate [Apical] 69 71 77 Pulse Rate [Right Finger] Pulse Rate from SpO2 Sensor Pulse Rhythm Pulse Rhythm [Apical] Pulse Rhythm [Right Finger] Pulse Strength [Apical] Pulse Strength [Right Finger] Respiratory Rate 16 17 17 Respiratory Effort / Characteristics Respiratory Depth Respiratory Pattern Blood Pressure Blood Pressure [Right Arm] 148/82 H 147/90 H 142/83 H Blood Pressure Mean Blood Pressure Mean [Right Arm] 104 109 102 Blood Pressure Position [Right Arm] Lying Sitting Pulse Oximetry 96 97 97 Oxygen Delivery Method Room Air Room Air Room Air Oxygen Flow Rate 12/30/18 20:13 12/30/18 23:14 12/31/18 03:03 Temperature 36.7 C 36.7 C 36.3 C L Temperature Source Oral Oral Oral Sepsis Recent Fever Within 48 Hours Sepsis Action Taken by Nursing Pulse Rate Pulse Rate [Apical] 85 Pulse Rate [Right Finger] 81 88 Pulse Rate from SpO2 Sensor Pulse Rhythm Pulse Rhythm [Apical] Pulse Rhythm [Right Finger] Regular Regular Pulse Strength [Apical] Pulse Strength [Right Finger] Normal Normal Respiratory Rate 16 16 16 Respiratory Effort / Characteristics Respiratory Depth Normal Normal Respiratory Pattern Blood Pressure Blood Pressure [Right Arm] 128/78 125/78 107/71 Blood Pressure Mean Blood Pressure Mean [Right Arm] 94 93 83 Blood Pressure Position [Right Arm] Lying Lying Lying Pulse Oximetry 93 96 96 Oxygen Delivery Method Room Air Room Air Oxygen Flow Rate GENERAL: Patient is awake, alert, and uncomfortable appearing. Very anxious appearing. EYES: The conjunctivae are clear. The pupils are round and reactive. EARS, NOSE, MOUTH AND THROAT: The nose is without any evidence of any deformity. Mucous membranes are moist.Tongue is midline NECK: The neck is nontender and supple. RESPIRATORY: Normal respiratory effort is noted. There is no evidence of wheezing rhonchi or rales to auscultation. CARDIOVASCULAR: Regular rate and rhythm noted. There no murmurs rubs or gallops normal S1 normal S2 GASTROINTESTINAL: The abdomen is soft and mildly distended. Bowel sounds are present in all quadrants. There is epigastric tenderness to palpation. No pulsatile mass. No guarding or ridigity. MUSCULOSKELETAL/EXTREMITIES: There is no evidence of gross deformity. Full range of motion is noted in the hips and shoulders. SKIN: There is no obvious evidence of any rash. There are no petechiae, pallor or cyanosis noted. NEUROLOGIC: Patient is awake alert and oriented x3. Course 0708: The patient was evaluated in room A10. A history and physical were performed. 0753: I checked on the patient and updated her. 0951: I discussed the patient's case with Padilla Wheat PA-C General Surgery who will come see the patient. 1230: The patient will be evaluated further by Surgery. Consultations Consultation #1: Padilla Wheat PA-C General Surgery Time: 09:51 Administered Medications Acetaminophen (Tylenol) 650 mg PO Q4H PRN PRN Reason: Pain Stop: 01/29/19 15:27 Last Admin: 12/31/18 00:01 Dose: 650 mg Documented by: [id number] Hydrocodone Bitart/Acetaminophen (Murphys 5/325) 1 tab PO 3XDQ4 PRN PRN Reason: Pain Stop: 01/13/19 15:27 Last Admin: 12/31/18 03:15 Dose: 1 tab Documented by: [id number] Hydrocodone Bitart/Acetaminophen (Murphys 5/325) 2 tab PO 3XDQ4 PRN PRN Reason: Pain Stop: 01/13/19 15:27 Last Admin: 12/30/18 16:35 Dose: 2 tab Documented by: [id number] Hydromorphone HCl (Dilaudid) 0.5 mg IV Q3HWA PRN PRN Reason: Pain Stop: 01/13/19 13:43 Last Admin: 12/30/18 20:20 Dose: 0.5 mg Documented by: [id number] Cefoxitin Sodium 2,000 mg/ (Dextrose) 70 mls @ 100 mls/hr IV Q8H BANDAR; Protocol Stop: 01/09/19 17:59 Last Infusion: 12/31/18 02:55 Dose: 0 mls/hr Documented by: [id number] Admin: 12/31/18 02:13 Dose: 100 mls/hr Documented by: [id number] Infusion: 12/30/18 19:42 Dose: 0 mls/hr Documented by: [id number] Admin: 12/30/18 18:54 Dose: 100 mls/hr Documented by: [id number] Sodium Chloride (Nss 1000ml) 1,000 mls @ 80 mls/hr IV .[id number] BANDAR Stop: 01/29/19 15:59 Last Admin: 12/31/18 04:56 Dose: 80 mls/hr Documented by: [id number] Infusion: 12/31/18 04:56 Dose: 80 mls/hr Documented by: [id number] Admin: 12/30/18 16:36 Dose: 80 mls/hr Documented by: [id number] Senna/Docusate Sodium (Senokot S) 1 tab PO BID BANDAR Stop: 01/29/19 20:59 Last Admin: 12/30/18 20:20 Dose: 1 tab Documented by: [id number] Discontinued Medications Acetaminophen (Ofirmev) Confirm Administered Dose 1,000 mg IV .STK-MED ONE Stop: 12/30/18 14:08 Last Admin: 12/30/18 16:31 Dose: Not Given Documented by: [id number] Al Hydrox/Mg Hydrox/Simethicone () 1 dose PO ONE ONE Stop: 12/30/18 07:12 Last Admin: 12/30/18 07:28 Dose: 1 dose Documented by: [id number] Bupivacaine HCl (Marcaine 0.5% Mpf) Confirm Administered Dose 30 ml .ROUTE .STK- MED ONE Stop: 12/30/18 12:22 Last Admin: 12/30/18 13:38 Dose: 18 ml Documented by: [id number] Fentanyl Citrate (Fentanyl Citrate) 50 mcg IV NOW STA Stop: 12/30/18 07:59 Last Admin: 12/30/18 08:09 Dose: 50 mcg Documented by: [id number] Sodium Chloride (Nss) 500 mls @ 999 mls/hr IV .Q31M [facility] Stop: 12/30/18 07:45 Last Infusion: 12/30/18 07:59 Dose: 0 mls/hr Documented by: [id number] Admin: 12/30/18 07:28 Dose: 999 mls/hr Documented by: [id number] Promethazine HCl (Phenergan) 12.5 mg in 50.5 mls @ 202 mls/hr IV NOW STA Stop: 12/30/18 08:12 Last Infusion: 12/30/18 08:23 Dose: 0 mls/hr Documented by: [id number] Admin: 12/30/18 08:08 Dose: 202 mls/hr Documented by: [id number] Cefoxitin Sodium (Mefoxin) 1,000 mg in 50 mls @ 100 mls/hr IV NOW STA Stop: 12/30/18 10:15 Last Infusion: 12/30/18 10:28 Dose: 0 mls/hr Documented by: [id number] Admin: 12/30/18 09:58 Dose: 100 mls/hr Documented by: [id number] Acetaminophen (Ofirmev) 1,000 mg in 100 mls @ 400 mls/hr IV NOW ONE Stop: 12/30/18 13:50 Last Infusion: 12/30/18 16:32 Dose: 0 mls/hr Documented by: [id number] Admin: 12/30/18 14:12 Dose: 400 mls/hr Documented by: [id number] Iothalamate Meglumine (Conray 60%) Confirm Administered Dose 50 ml .ROUTE .ST- MED ONE Stop: 12/30/18 12:22 Last Admin: 12/30/18 13:38 Dose: Not Given Documented by: [id number] Ondansetron HCl (Zofran) 4 mg IV NOW STA Stop: 12/30/18 07:12 Last Admin: 12/30/18 07:28 Dose: 4 mg Documented by: [id number] Pantoprazole Sodium (Protonix) 40 mg PO NOW STA Stop: 12/30/18 07:12 Last Admin: 12/30/18 07:28 Dose: 40 mg Documented by: [id number] Medical Decision Making Differential Diagnosis Differential diagnosis: Etiologies such as shingles, musculoskeletal pain, pericarditis, myocarditis, cardiac ischemia, pericardial tamponade, pneumonia, pneumothorax, pleural effusion, hemothorax, pleurisy, aortic pathology, pulmonary embolism, intra- abdominal process, as well as others were considered. Medical Records Attestation: I reviewed the patient's medical records. Home Medications Current Medication List: was personally reviewed by me Laboratory Data Attestation: I reviewed the patient's lab results. Result diagrams: 12/31/18 05:33 12/30/18 07:09 Lab Results 12/30/18 12/30/18 12/30/18 Range/Units 07:09 07:09 07:09 WBC 9.61 (4.8-10.8) K/uL RBC 4.90 (4.2-5.4) M/uL Hgb 13.6 (12.0-16.0) g/dL Hct 40.5 (37-47) % MCV 82.7 (80-100) fL MCH 27.8 (25-34) pg MCHC 33.6 (32-36) g/dL RDW Std Deviation 44.1 (36.4-46.3) fL RDW Coeff of Scotty 14.6 H (11.5-14.5) % Plt Count 354 (130-400) K/uL MPV 9.3 (7.4-10.4) fL Immature Gran % (Auto) 0.2 % Neut % (Auto) 71.2 % Lymph % (Auto) 19.1 % [place] % (Auto) 7.9 % Eos % (Auto) 1.4 % Baso % (Auto) 0.2 % Immature Gran # (Auto) 0.02 (0.00-0.02) K/uL Neut # (Auto) 6.84 H (1.4-6.5) K/uL Lymph # (Auto) 1.84 (1.2-3.4) K/uL [place] # (Auto) 0.76 H (0.11-0.59) K/uL Eos # (Auto) 0.13 (0-0.5) K/uL Baso # (Auto) 0.02 (0-0.2) K/uL PT 9.7 (9.0-12.0) Seconds INR 0.9 (0.9-1.1) APTT 28.9 (21.0-31.0) Seconds PTT Ratio 1.1 Sodium 135 L (136-145) mmol/L Potassium 4.5 (3.5-5.1) mmol/L Chloride 104 (98-107) mmol/L Carbon Dioxide 29 (21-32) mmol/L Anion Gap 2.0 L (3-11) BUN 12 (7-18) mg/dl Creatinine 0.88 (0.6-1.2) mg/dl Est Cr Clr Drug Dosing 106.0 ml/min Est GFR ( Amer) 89.4 Est GFR (Non-Af Amer) 77.2 BUN/Creatinine Ratio 14.0 (10-20) Glucose 99 (70-99) mg/dl Calcium 9.5 (8.5-10.1) mg/dl Total Bilirubin 0.3 (0.2-1) mg/dl AST 16 (15-37) U/L ALT 23 (12-78) U/L Alkaline Phosphatase 122 H (45-117) U/L Troponin I < 0.015 (0-0.045) ng/ml Total Protein 8.1 (6.4-8.2) gm/dl Albumin 3.6 (3.4-5.0) gm/dl Globulin 4.5 H (2.5-4.0) gm/dl Albumin/Globulin Ratio 0.8 L (0.9-2) Lipase 117 (73-393) U/L Urine Color Urine Appearance (Clear) Urine pH (4.5-7.5) Ur Specific [place] (1.000-1.030) Urine Protein (Negative) Urine Glucose (UA) (Negative) Urine Ketones (Negative) Urine Blood (Negative) Urine Nitrite (Negative) Urine Bilirubin (Negative) Urine Urobilinogen (Negative) Ur Leukocyte Esterase (Negative) 12/30/18 12/31/18 Range/Units 07:55 05:33 WBC 13.40 H (4.8-10.8) K/uL RBC 4.08 L (4.2-5.4) M/uL Hgb 11.6 L (12.0-16.0) g/dL Hct 33.9 L (37-47) % MCV 83.1 (80-100) fL MCH 28.4 (25-34) pg MCHC 34.2 (32-36) g/dL RDW Std Deviation 44.3 (36.4-46.3) fL RDW Coeff of Scotty 14.7 H (11.5-14.5) % Plt Count 282 (130-400) K/uL MPV 8.9 (7.4-10.4) fL Immature Gran % (Auto) 0.1 % Neut % (Auto) 85.4 % Lymph % (Auto) 7.2 % [place] % (Auto) 7.3 % Eos % (Auto) 0.0 % Baso % (Auto) 0.0 % Immature Gran # (Auto) 0.02 (0.00-0.02) K/uL Neut # (Auto) 11.44 H (1.4-6.5) K/uL Lymph # (Auto) 0.96 L (1.2-3.4) K/uL [place] # (Auto) 0.98 H (0.11-0.59) K/uL Eos # (Auto) 0.00 (0-0.5) K/uL Baso # (Auto) 0.00 (0-0.2) K/uL PT (9.0-12.0) Seconds INR (0.9-1.1) APTT (21.0-31.0) Seconds PTT Ratio Sodium (136-145) mmol/L Potassium (3.5-5.1) mmol/L Chloride (98-107) mmol/L Carbon Dioxide (21-32) mmol/L Anion Gap (3-11) BUN (7-18) mg/dl Creatinine (0.6-1.2) mg/dl Est Cr Clr Drug Dosing ml/min Est GFR ( Amer) Est GFR (Non-Af Amer) BUN/Creatinine Ratio (10-20) Glucose (70-99) mg/dl Calcium (8.5-10.1) mg/dl Total Bilirubin (0.2-1) mg/dl AST (15-37) U/L ALT (12-78) U/L Alkaline Phosphatase (45-117) U/L Troponin I (0-0.045) ng/ml Total Protein (6.4-8.2) gm/dl Albumin (3.4-5.0) gm/dl Globulin (2.5-4.0) gm/dl Albumin/Globulin Ratio (0.9-2) Lipase (73-393) U/L Urine Color Yellow Urine Appearance Clear (Clear) Urine pH 8.0 H (4.5-7.5) Ur Specific [place] 1.017 (1.000-1.030) Urine Protein Negative (Negative) Urine Glucose (UA) Negative (Negative) Urine Ketones Negative (Negative) Urine Blood Negative (Negative) Urine Nitrite Negative (Negative) Urine Bilirubin Negative (Negative) Urine Urobilinogen Negative (Negative) Ur Leukocyte Esterase Negative (Negative) Imaging Data Radiologist's Impression: Radiology results as stated below per my review and the radiologist's interpretation: SINGLE VIEW CHEST CLINICAL HISTORY: Atypical chest pain. FINDINGS: An AP, portable, upright chest radiograph is compared to study dated 09/10/2018. The cardiomediastinal silhouette is unremarkable. There is mild bibasilar atelectasis. The lungs and pleural spaces are otherwise clear. No pneumothorax is seen. The bony thorax is grossly intact. IMPRESSION: No active disease in the chest. Electronically signed by: Mario Allen M.D. 12/30/2018 7:33 AM KUB CLINICAL HISTORY: Abdominal pain. COMPARISON STUDY: CT of the abdomen and pelvis July 09, 2017. FINDINGS: Several left renal calculi measure up to 4 mm. A left pelvic calcification was shown to represent a phlebolith on prior CT. The bowel gas pattern is normal. IMPRESSION: 1. Left-sided nephrolithiasis. 2. No ureteral calculi identified. 2. No evidence for a bowel obstruction. Electronically signed by: Daniel Chicas M.D. 12/30/2018 7:[address] OF THE ABDOMEN AND PELVIS WITHOUT CONTRAST CLINICAL HISTORY: Right flank pain. COMPARISON STUDY: CT of the abdomen and pelvis July 09, 2017. KUB performed earlier today. TECHNIQUE: Axial images of the abdomen and pelvis were obtained without IV contrast. Images were reviewed in the axial, sagittal, and coronal planes. Automated exposure control was utilized for the study. A dose lowering technique was utilized adhering to the principles of ALARA. FINDINGS: Lung bases are clear. There are multiple bilateral renal calculi that measure up to 6 mm. There is no hydronephrosis or hydroureter. No ureteral calculi are identified. Evaluation of the remainder of the abdomen and pelvis is suboptimal on this unenhanced exam. The liver, spleen, adrenal glands and pancreas are unremarkable. Gallstones are noted within the gallbladder. The gallbladder is mildly distended. There is slight indistinctness of the gallbladder wall. There may be minimal pericholecystic infiltration. There is no biliary or pancreatic ductal dilatation. There is no evidence for a bowel obstr uction. The appendix is normal. There is no lymphadenopathy or ascites. No suspicious skeletal lesions are present. IMPRESSION: 1. Cholelithiasis, mild gallbladder distention and minimal pericholecystic infiltration. These findings suggest acute cholecystitis. 2. Bilateral nephrolithiasis. No ureteral calculi. Electronically signed by: Daniel Chicas M.D. 12/30/2018 9:24 AM ECG Data Attestation: I personally reviewed and interpreted this ECG as follows: Indication: chest pain Rate (beats per minute): 64 Rhythm: normal sinus Findings: no PAC, no PVC, no ST depression, no ST elevation, no acute ischemic c hange and no ectopy Comparison ECG Date: from (12/25/17) Change: no significant change Blood Pressure Blood Pressure Findings: Elevated blood pressure Additional Comments: further management by surgery MDM Narrative The patient is a 48-year-old female who presented to the emergency department f or an evaluation of chest pain. The patient describes chest pain which was in her lower substernal region as well as her epigastric abdomen. The patient did have reproducible pain on palpation in the epigastrium. She did not have significant right upper quadrant tenderness to palpation but while she was in the emergency department she started noticing pain which was in her right upper quadrant and into her right flank. Because of the acute onset and colicky nature of the pain I thought this could be consistent with a kidney stone. I discussed the patient's laboratory results with her. CT of the abdomen and pelvis was obtained but instead showed signs of acute cholecystitis. The patien t was treated with IV fluids IV pain medication and IV antiemetics. She still had significant nausea but her pain was significantly improved. Because of her findings I discussed her case with the on-call general surgery group. They have agreed to evaluate the patient in the emergency department for further management and disposition. Impression & Plan Acute cholecystitis, Chest pain, Abdominal pain, RUQ Discharge Plan Visit Data *Final* Discharge Date/Time: 12/30/18 12:04 Chief Complaint: Chest Pain Stated Complaint: CHEST PAIN-ABDOMINAL AND BACK PAIN ED Provider: Jose Antonio Allen Discharge Problem: Acute cholecystitis, Chest pain, Abdominal pain, RUQ Patient Disposition: Admitted As Inpatient Discharge Instructions Interventions: ED Discharge Assessment Last Done: 12/30/18 12:04 Discharge Problem: Chest pain Qualifiers: Chest pain type: unspecified Qualified Code(s): R07.9 - Chest pain, unspecified The scribe's documentation has been prepared under my direction and personally reviewed by me in its entirety. I confirm that the note above accurately reflects all work, treatment, procedures, and medical decision making performed by me.
--- NOTE | 2018-12-30 10:33 | History & Physical Report ---
Date of Service December 30, 2018 Assessment & Plan (1) Acute cholecystitis: Cholelithiasis, acute cholecystitis. Has inflammatory changes on CT, normal LFTs, mild left shift. Given these findings and her recurrent attacks, she would like to proceed with laparoscopic cholecystectomy. Dr Perrin- I saw pt in ER and discussed laparoscopic cholecystectomy- she desires to proceed agree with Padilla Wheat's note Dr Perrin History of Present Illness Primary Care Provider: ROMY Gonzalez 48 y/o female with epigastric pain, N/V that began last night after eating chicken and egg salad. Had two similar attacks in past month after eating [employer] and birthday cake. Allergies Allergy/AdvReac Type Severity Reaction Status Date / Time levofloxacin Allergy Mild RASH Verified 12/30/18 07:56 erythromycin base Allergy Unknown GI SYMPTOMS Unverified 12/30/18 07:56 morphine Allergy Unknown ill Verified 12/30/18 07:56 onion Allergy Unknown . Unverified 12/30/18 07:56 Penicillins Allergy Unknown swelling Unverified 12/30/18 07:56 Home Medications Home Medications Medication Instructions Recorded Confirmed Type escitalopram oxalate 20 mg PO DAILY 12/30/18 12/30/18 History naproxen 500 mg PO BID PRN 12/30/18 12/30/18 History propranolol 80 mg PO DAILY 12/30/18 12/30/18 History Past Med/Surg History Medical History Renal colic (Acute) H/O: hysterectomy (Resolved) Social History Feels Safe at Home: Yes Smoking Status: Never smoker Review of Systems Constitutional: no fever, no chills, no malaise and no anorexia Gastrointestinal: + abdominal pain, + nausea and + vomiting; no bloating and no heartburn Physical Exam Constitutional: WD/WN, vitals as above Respiratory: normal respiratory effort, lungs clear to auscultation Cardiovascular: RRR, no murmur, no edema Gastrointestinal (Abdomen): Inspection/Auscultation: abdomen normal to inspection; abdomen not distended Percussion/Palpation: + abdomen tender (mild epigastric/RUQ) and abdomen soft Skin: no rashes, warm and dry Results & Data Vital Signs (Past 12 Hours) Vital Signs Temp Pulse Pulse Resp BP BP Pulse Ox 12/30/18 10:03 61 16 157/88 H 97 12/30/18 09:31 65 65 16 157/88 H 157/88 H 97 12/30/18 09:30 65 16 97 12/30/18 09:15 66 15 95 12/30/18 09:07 67 67 16 166/97 H 166/97 H 99 12/30/18 08:45 71 17 95 12/30/18 08:31 71 71 12 166/101 H 166/101 H 97 12/30/18 08:30 73 18 93 12/30/18 08:15 79 11 L 95 12/30/18 08:00 61 84 17 195/108 H 195/108 H 99 12/30/18 07:45 84 18 99 12/30/18 07:34 60 60 13 179/118 H 179/118 H 100 12/30/18 07:32 63 17 176/111 H 99 12/30/18 07:30 65 17 99 12/30/18 07:19 62 16 100 12/30/18 07:17 60 18 162/99 H 100 12/30/18 07:15 61 13 100 12/30/18 07:11 60 16 162/99 H 100 12/30/18 07:06 67 16 100 12/30/18 07:02 66 13 189/102 H 100 12/30/18 06:58 36.7 C 62 12 189/[address] OF THE ABDOMEN AND PELVIS WITHOUT CONTRAST CLINICAL HISTORY: Right flank pain. COMPARISON STUDY: CT of the abdomen and pelvis July 09, 2017. KUB performed earlier today. TECHNIQUE: Axial images of the abdomen and pelvis were obtained without IV con trast. Images were reviewed in the axial, sagittal, and coronal planes. Automated exposure control was utilized for the study. A dose lowering technique was utilized adhering to the principles of ALARA. FINDINGS: Lung bases are clear. There are multiple bilateral renal calculi that measure up to 6 mm. There is no hydronephrosis or hydroureter. No ureteral calculi are identified. Evaluation of the remainder of the abdomen and pelvis is suboptimal on this unenhanced exam. The liver, spleen, adrenal glands and pancreas are unremarkable. Gallstones are noted within the gallbladder. The gallbladder is mildly distended. There is slight indistinctness of the gallbladder wall. There may be minimal pericholecystic infiltration. There is no biliary or pancreatic ductal dilatation. There is no evidence for a bowel obstruction. The appendix is normal. There is no lymphadenopathy or ascites. No suspicious skeletal lesions are present. IMPRESSION: 1. Cholelithiasis, mild gallbladder distention and minimal pericholecystic infiltration. These findings suggest acute cholecystitis. 2. Bilateral nephrolithiasis. No ureteral calculi. Electronically signed by: Daniel Chicas M.D. 12/30/2018 9:24 AM
--- NOTE | 2018-12-30 11:12 | Anesthesiology Consultation ---
Date of Service December 30, 2018 Assessment & Plan (1) Encounter for pre-operative examination: Chart Review Chart Review: Acceptable Risk for Surgery and Patient NOT seen in Pre Admission Testing Consults Requested none History Surgery Operation Date: 12/30/18 07:50 Proposed Procedures p Laparoscopic Cholecystectomy - Juvenal Perrin MD, FACS Height/Weight Height: 5 ft 7 in Weight: 124.6 kg Allergies Allergy/AdvReac Type Severity Reaction Status Date / Time levofloxacin Allergy Mild RASH Verified 12/30/18 07:56 erythromycin base Allergy Unknown GI SYMPTOMS Unverified 12/30/18 07:56 morphine Allergy Unknown ill Verified 12/30/18 07:56 onion Allergy Unknown . Unverified 12/30/18 07:56 Penicillins Allergy Unknown swelling Unverified 12/30/18 07:56 Medications Home Medications Medication Instructions Recorded Confirmed Last Taken escitalopram oxalate 20 mg PO DAILY 12/30/18 12/30/18 Unknown naproxen 500 mg PO BID PRN 12/30/18 12/30/18 Unknown propranolol 80 mg PO DAILY 12/30/18 12/30/18 Unknown Past Medical History Medical History Renal colic (Acute) Morbid obesity Past Surgical History Surgical History H/O: hysterectomy (Resolved) Social History Smoking Status: Never smoker Physical Exam Vital Signs Last Vital Signs Temp 36.7 C 12/30/18 06:58 Pulse 61 12/30/18 10:03 Resp 16 12/30/18 10:03 BP 157/88 H 12/30/18 10:03 Pulse Ox 97 12/30/18 10:03 Testing Electrocardiogram Date: 12/30/18 Findings: + NSR @ (64) Chest X-Ray Date: 12/30/18 SINGLE VIEW CHEST CLINICAL HISTORY: Atypical chest pain. FINDINGS: An AP, portable, upright chest radiograph is compared to study dated 09/10/2018. The cardiomediastinal silhouette is unremarkable. There is mild bi basilar atelectasis. The lungs and pleural spaces are otherwise clear. No pneumothorax is seen. The bony thorax is grossly intact. IMPRESSION: No active disease in the chest. Electronically signed by: Mario Allen M.D. 12/30/2018 7:[address] THE ABDOMEN AND PELVIS WITHOUT CONTRAST CLINICAL HISTORY: Right flank pain. COMPARISON STUDY: CT of the abdomen and pelvis July 09, 2017. KUB performed earlier today. TECHNIQUE: Axial images of the abdomen and pelvis were obtained without IV contrast. Images were reviewed in the axial, sagittal, and coronal planes. Automated exposure control was utilized for the study. A dose lowering technique was utilized adhering to the principles of ALARA. FINDINGS: Lung bases are clear. There are multiple bilateral renal calculi that measure up to 6 mm. There is no hydronephrosis or hydroureter. No ureteral calculi are identified. Evaluation of the remainder of the abdomen and pelvis is suboptimal on this unenhanced exam. The liver, spleen, adrenal glands and pancreas are unremarkable. Gallstones are noted within the gallbladder. The gallbladder is mildly distended. There is slight indistinctness of the gallbladder wall. There may be minimal pericholecystic infiltration. There is no biliary or pancreatic ductal dilatation. There is no evidence for a bowel obstruction. The appendix is normal. There is no lymphadenopathy or ascites. No suspicious skeletal lesions are present. IMPRESSION: 1. Cholelithiasis, mild gallbladder distention and minimal pericholecystic infiltration. These findings suggest acute cholecystitis. 2. Bilateral nephrolithiasis. No ureteral calculi. Electronically signed by: Daniel Chicas M.D. 12/30/2018 9:24 AM Dictated: 12/30/1818 Transcribed: 12/30/18 0918 Laboratory Results 12/30/18 07:09 12/30/18 07:09 PT 9.7 Seconds (9.0-12.0) 12/30/18 07:09 INR 0.9 (0.9-1.1) 12/30/18 07:09 APTT 28.9 Seconds (21.0-31.0) 12/30/18 07:09 Urine Color Yellow 12/30/18 07:55 Urine Appearance Clear (Clear) 12/30/18 07:55 Urine pH 8.0 (4.5-7.5) H 12/30/18 07:55 Ur Specific [place] 1.017 (1.000-1.030) 12/30/18 07:55 Urine Protein Negative (Negative) 12/30/18 07:55 Urine Glucose (UA) Negative (Negative) 12/30/18 07:55 Urine Ketones Negative (Negative) 12/30/18 07:55 Urine Nitrite Negative (Negative) 12/30/18 07:55 Ur Leukocyte Esterase Negative (Negative) 12/30/18 07:55
[2018-12-30] MEDS ORDERED: GLYCOPYRROLATE 0.2 MG/ML VIAL ONE (11:33)
[2018-12-30] MEDS ORDERED: DEXAMETHASONE SOD INJ 4 MG/ML VIAL ONE (11:33)
[2018-12-30] MEDS ORDERED: ONDANSETRON INJ 2 MG/ML 2 ML VIAL ONE (11:33)
[2018-12-30] MEDS ORDERED: LIDOCAINE HCL 2% 2 ML VIAL/AMP(20MG/ML) INFIL ONE (11:33)
[2018-12-30] MEDS ORDERED: NEOSTIGMINE METHYLSULFATE 5 MG/5 ML SYR ONE (11:33)
[2018-12-30] MEDS ORDERED: PROPOFOL IV EMULSION 10 MG/ML 20 ML VIAL IV ONE (11:33)
[2018-12-30] MEDS ORDERED: fentaNYL citrate 100 MCG/2 ML VIAL ONE ×2 (11:34)
[2018-12-30] MEDS ORDERED: MIDAZOLAM HCL 1 MG/ML 2ML VIAL ONE (11:34)
[2018-12-30] MEDS ORDERED: fentaNYL citrate 100 MCG/2 ML VIAL IV PRN (12:07)
[2018-12-30] MEDS ORDERED: ePHEDrine sulfate 50 MG/ML AMP IV PRN (12:07)
[2018-12-30] MEDS ORDERED: ONDANSETRON INJ 2 MG/ML 2 ML VIAL IV PRN ×2 (12:07→15:28)
[2018-12-30] MEDS ORDERED: ATROPINE SULFATE 0.1 MG/ML 10ML SYR IV PRN (12:07)
[2018-12-30] MEDS ORDERED: CONRAY 60% 50 ML VIAL ONE (12:21)
[2018-12-30] MEDS ORDERED: BUPIVACAINE 0.5 % 5 MG/1 ML MPF 30ML VIAL ONE (12:21)
[2018-12-30] MEDS ORDERED: ROCURONIUM BROMIDE 10 MG/ML 5 ML VIAL ONE (13:13)
[2018-12-30] MEDS ORDERED: ACETAMINOPHEN 1,000 MG/100 ML VIAL IV ONE (13:36)
--- NOTE | 2018-12-30 13:36 | Operative Report ---
Post Operative Report Pre & Post Diagnosis Operation Date: 12/30/18 07:50 Pre-Op Diagnosis: Acute Cholecystitis Post-Op Diagnosis: Acute Cholecystitis Procedure Operation Date: 12/30/18 07:50 Actual Procedures p Laparoscopic Cholecystectomy - Juvenal Perrin MD, FACS Surgeon Juvenal Perrin MD, FACS Staff Accountant Caron Wheat Estimated Blood Loss 20 Findings Consistent with Post-Op Diagnosis Specimens gallbldder Description of Procedure see dictated note I attest to the content of the Intraoperative Record and any orders documented therein. Any exceptions are noted below.
[2018-12-30] MEDS ORDERED: HYDROmorphone INJ 0.5 MG/0.5 ML SYR IV PRN (13:44)
[2018-12-30] MEDS ORDERED: HYDROmorphone INJ 1 MG/ML SYRINGE IV PRN (13:44)
--- NOTE | 2018-12-30 13:54 | Operative Report ---
DATE OF OPERATION: 12/30/2018 NAME OF OPERATION: Laparoscopic cholecystectomy. PREOPERATIVE DIAGNOSIS: Acute cholecystitis. POSTOPERATIVE DIAGNOSIS: Same. STAFF SURGEON: Dr. Perrin. ENTRY WRITER: Padilla Wheat PA-C. ANESTHESIA: General. PROCEDURE: The patient was brought in the operating room and placed on the operating table in supine position. Her abdomen was prepped and draped in usual fashion. Orogastric tube and pneumatic stockings were placed. 0.5% plain Marcaine was used to anesthetize all incisions. Incision was made above the umbilicus, carrying dissection very deeply down through adipose tissue to the fascia. A Veress needle was placed. Pneumoperitoneum produced. An 11 mm port placed at this level. Under visualization three 5 mm ports were placed, one cephalad and two laterally. Gallbladder was grasped and retracted. It was very thick and edematous from acute cholecystitis. It was aspirated of sludge-like bile. There were some adhesions. Dissection was carried out at the veronique hepatis showing severe edema in the gallbladder. The cystic duct and cystic artery identified, clipped and transected. The gallbladder was dissected away from the liver bed with some difficulty because of the morbid obesity and the size of the gallbladder. It was placed in an Endobag. After appropriate irrigation and hemostasis, the Endobag was removed through the umbilical site. I did have to enlarge the fascial defect because of the size of the gallbladder. Fascia was closed using 0 PDS suture, subcutaneous tissue reapproximated using 2-0 plain suture then the skin reapproximated using 5-0 Prolene suture. The patient was transferred to recovery room in stable condition. My commercial lending assistant helped with prepping, draping, removal of the gallbladder and closure of the wounds. I attest to the content of the Intraoperative Record and any orders documented therein. Any exception s are noted below.
[2018-12-30] MEDS ORDERED: ACETAMINOPHEN 1000 MG/100 ML IV IV ONE (14:07)
--- NOTE | 2018-12-30 15:08 | Anesthesiology Progress Note ---
Date of Service December 30, 2018 Anesthesia Post Procedure Vital Signs Vital Signs: Temp Pulse Pulse Resp BP BP Pulse Ox 12/30/18 14:30 98.2 F 64 20 142/84 H 100 12/30/18 14:24 98.2 F 67 16 140/75 100 12/30/18 14:20 64 15 137/82 100 12/30/18 14:10 66 19 138/85 100 12/30/18 14:00 67 13 141/94 H 100 12/30/18 13:51 97.5 F L 68 13 154/75 H 100 12/30/18 12:24 98.4 F 64 18 156/97 H 98 12/30/18 12:04 98.1 F 61 16 169/99 H 100 12/30/18 11:32 61 61 16 169/99 H 169/99 H 100 12/30/18 11:30 64 15 12/30/18 11:15 64 17 12/30/18 11:01 62 62 15 156/98 H 156/98 H 98 12/30/18 11:00 64 18 99 12/30/18 10:45 64 17 99 12/30/18 10:31 63 63 12 158/98 H 158/98 H 98 12/30/18 10:30 66 18 93 12/30/18 10:15 64 21 100 12/30/18 10:10 59 L 59 L 19 157/88 H 157/88 H 99 12/30/18 10:03 61 16 157/88 H 97 12/30/18 10:02 62 13 12/30/18 09:45 68 17 94 12/30/18 09:31 65 65 16 157/88 H 157/88 H 97 12/30/18 09:30 65 16 97 12/30/18 09:15 66 15 95 12/30/18 09:07 67 67 16 166/97 H 166/97 H 99 12/30/18 08:45 71 17 95 12/30/18 08:31 71 71 12 166/101 H 166/101 H 97 12/30/18 08:30 73 18 93 12/30/18 08:15 79 11 L 95 12/30/18 08:00 61 84 17 195/108 H 195/108 H 99 12/30/18 07:45 84 18 99 12/30/18 07:34 60 60 13 179/118 H 179/118 H 100 12/30/18 07:32 63 17 176/111 H 99 12/30/18 07:30 65 17 99 12/30/18 07:19 62 16 100 12/30/18 07:17 60 18 162/99 H 100 12/30/18 07:15 61 13 100 12/30/18 07:11 60 16 162/99 H 100 12/30/18 07:06 67 16 100 12/30/18 07:02 66 13 189/102 H 100 12/30/18 06:58 98.1 F 62 12 189/102 H 100 Pain Intensity Medial Chest: Pain Intensity: 3 Abdomen: Pain Intensity: 0 Transfer of Care Handoff Completed per policy Notes Mental Status: alert / awake / arousable and participated in evaluation Patient Amnestic to Procedure: Yes Nausea / Vomiting: adequately controlled Pain: adequately controlled Airway Patency, RR, SpO2: stable & adequate BP & HR: stable & adequate Hydration State: stable & adequate Anesthetic Complications: no major complications apparent and Pt Satisfied with anesthetic care
[2018-12-30] MEDS ORDERED: PROMETHAZINE HCL 25 MG in SODIUM CHLORIDE 0.9% 50 ML IV PRN (15:28)
[2018-12-30] MEDS ORDERED: PROMETHAZINE HCL 12.5 MG in SODIUM CHLORIDE 0.9% 50 ML IV PRN (15:28)
[2018-12-30] MEDS ORDERED: HYDROCODONE/ACETAMOPHEN 5/325MG TAB PO PRN ×2 (15:28)
--- NOTE | 2018-12-30 16:17 | Internal Medicine Consult Note ---
Date of Consultation December 30, 2018 12/30/18 07:50 Anesthesia Type: General Laparoscopic Cholecystectomy Surgeon: Juvenal Perrin Assessment & Plan (1) Acute cholecystitis: Patient had acute cholecystectomy on 12/30, she remains on cefoxitin 2 g every 8 IV (2) Hypertension: Patient maintained on propranolol with a small sip of water this is also serves as migraine prophylaxis (3) Depression: Patient typically takes Lexapro which she is currently being held by surgical team History of Present Illness Attending Physician: Juvenal Perrin MD, [facility] History of Present Illness Patient presented to the ER with recurrent attacks of right upper quadrant discomfort associate with her cholelithiasis. There was concern for inframammary changes seen on CT scan. She was taken to the operating room and had a laparoscopic cholecystectomy. Patient does have previous history of renal stones Allergies Allergy/AdvReac Type Severity Reaction Status Date / Time levofloxacin Allergy Mild RASH Verified 12/30/18 07:56 erythromycin base Allergy Unknown GI SYMPTOMS Unverified 12/30/18 07:56 morphine Allergy Unknown ill Verified 12/30/18 07:56 onion Allergy Unknown . Unverified 12/30/18 07:56 Penicillins Allergy Unknown swelling Unverified 12/30/18 07:56 Home Medications Home Medications Medication Instructions Recorded Confirmed Type escitalopram oxalate 20 mg PO DAILY 12/30/18 12/30/18 History naproxen 500 mg PO BID PRN 12/30/18 12/30/18 History propranolol 80 mg PO DAILY 12/30/18 12/30/18 History Patient History Medical History Renal colic (Acute) Morbid obesity Surgical History H/O: hysterectomy (Resolved) Social History Feels Safe at Home: Yes Smoking Status: Never smoker Review of Systems Review of Systems: ROS: well nourished well developed. No double vision blurry vision No problems with speech or swallowing No palpitations, chest pain or pressure No Wheezing or breathing issues Typical postoperative abdominal pain without nausea vomiting surgery is getting a full diet this evening No burning urine urine frequency or changes in color No focal joint pain or muscle pain No skin rashes or oral lesions No unusual bruising or bleeding No focused back pain or numbness or loss of strength No changes in memory or confusion Physical Exam Physical Exam: The patient appeared well nourished and normally developed. Vital signs as documented. Head exam is unremarkable. normocephalic, atraumatic Neck is without jugular venous distension, thyromegaly, or lymphademopathy Lungs are clear to auscultation and percussion. Cardiac exam reveals Rhythm is regular. First and second heart sounds normal. Abdominal exam reveals soft mildly tender hypoactive bowel sounds, Extremities are nonedematous and both pedal pulses are present Neurologic exam is A&Ox3, no focal deficits, strength is equal bilateral Psychologically seems neither anxious or depressed Skin is warm Dry without bruises or lesions Results & Data Vital Signs (Past 12 Hours) Vital Signs Temp Pulse Pulse Resp BP BP Pulse Ox 12/30/18 15:50 69 16 148/82 H 96 12/30/18 15:20 36.6 C 63 17 157/85 H 98 12/30/18 14:30 36.8 C 64 20 142/84 H 100 12/30/18 14:24 36.8 C 67 16 140/75 100 12/30/18 14:20 64 15 137/82 100 12/30/18 14:10 66 19 138/85 100 12/30/18 14:00 67 13 141/94 H 100 12/30/18 13:51 36.4 C L 68 13 154/75 H 100 12/30/18 12:24 36.9 C 64 18 156/97 H 98 12/30/18 12:04 36.7 C 61 16 169/99 H 100 12/30/18 11:32 61 61 16 169/99 H 169/99 H 100 12/30/18 11:30 64 15 12/30/18 11:15 64 17 12/30/18 11:01 62 62 15 156/98 H 156/98 H 98 12/30/18 11:00 64 18 99 12/30/18 10:45 64 17 99 12/30/18 10:31 63 63 12 158/98 H 158/98 H 98 12/30/18 10:30 66 18 93 12/30/18 10:15 64 21 100 12/30/18 10:10 59 L 59 L 19 157/88 H 157/88 H 99 12/30/18 10:03 61 16 157/88 H 97 12/30/18 10:02 62 13 12/30/18 09:45 68 17 94 12/30/18 09:31 65 65 16 157/88 H 157/88 H 97 12/30/18 09:30 65 16 97 12/30/18 09:15 66 15 95 12/30/18 09:07 67 67 16 166/97 H 166/97 H 99 12/30/18 08:45 71 17 95 12/30/18 08:31 71 71 12 166/101 H 166/101 H 97 12/30/18 08:30 73 18 93 12/30/18 08:15 79 11 L 95 12/30/18 08:00 61 84 17 195/108 H 195/108 H 99 12/30/18 07:45 84 18 99 12/30/18 07:34 60 60 13 179/118 H 179/118 H 100 12/30/18 07:32 63 17 176/111 H 99 12/30/18 07:30 65 17 99 12/30/18 07:19 62 16 100 12/30/18 07:17 60 18 162/99 H 100 12/30/18 07:15 61 13 100 12/30/18 07:11 60 16 162/99 H 100 12/30/18 07:06 67 16 100 12/30/18 07:02 66 13 189/102 H 100 12/30/18 06:58 36.7 C 62 12 189/102 H [address] abdomen pelvis shows cholelithiasis mild gallbladder distention minimal pericholecystic infiltration possible acute cholecystitis bilateral nephrolithiasis with no ureteral calculi. Patient was taken to the operating room by Dr. Perrin on 12/30 Chest x-rays unremarkable KUB shows left-sided nephrolithiasis no ureteral calculi no bowel obstruction EKG shows normal sinus rhythm
[2018-12-30] MEDS: SODIUM CHLORIDE 0.9% 1000ML 1,000 ML IV SCH (16:36)
[2018-12-30] MEDS: cefOXitin 2,000 MG in DEXTROSE 5% 50 ML IV SCH (18:54)
[2018-12-30] MEDS: DOCUSATE SODIUM/SENNA 50/8.6MG TAB PO SCH (20:20)
[2018-12-31] MEDS: ACETAMINOPHEN 325 MG TAB PO PRN ×2 (00:01→07:41)
[2018-12-31] MEDS: cefOXitin 2,000 MG in DEXTROSE 5% 50 ML IV SCH ×2 (02:13→09:39)
[2018-12-31] MEDS: SODIUM CHLORIDE 0.9% 1000ML 1,000 ML IV SCH (04:56)
[2018-12-31 05:44] LABS: Hematocrit (blood only) 33.9 % (37-47); Hemoglobin 11.6 g/dL (12.0-16.0); Immature Granulocytes # (auto) 0.02 K/uL (0.00-0.02); Immature Granulocytes % (auto) 0.1 %; Lymphocytes # (auto) 0.96 K/uL (1.2-3.4); Lymphocytes % (auto) 7.2 %; Mean Corpuscular Hgb Conc 34.2 g/dL (32-36); Mean Corpuscular Volume 83.1 fL (80-100); Mean Platelet Volume 8.9 fL (7.4-10.4); Monocytes # (auto) 0.98 K/uL (0.11-0.59); Monocytes % (auto) 7.3 %; Neutrophils # (auto) 11.44 K/uL (1.4-6.5); Neutrophils % (auto) 85.4 %; Platelet Count 282 K/uL (130-400); RDW Coefficient of Variation 14.7 % (11.5-14.5); RDW Standard Deviation 44.3 fL (36.4-46.3); Red Blood Count 4.08 M/uL (4.2-5.4)
[2018-12-31 06:13] LABS: Alanine Aminotransferase 24 U/L (12-78); Albumin Level 2.9 gm/dl (3.4-5.0); Aspartate Aminotransferase 21 U/L (15-37); BUN Creatinine Ratio 9.2 (10-20); Bilirubin Direct < 0.1 mg/dl (0-0.2); Blood Urea Nitrogen 8 mg/dl (7-18); Calcium 8.4 mg/dl (8.5-10.1); Carbon Dioxide 27 mmol/L (21-32); Chloride 107 mmol/L (98-107); Creatinine Clr Calc Pharmacy 110.8 ml/min; Est GFR (African American) 93.3; Est GFR (Non-African American) 80.5; Glucose 139 mg/dl (70-99); Potassium 4.5 mmol/L (3.5-5.1); Sodium 138 mmol/L (136-145)
[2018-12-31 06:22] LABS: Albumin Globulin Ratio 0.8 (0.9-2); Alkaline Phosphatase 87 U/L (45-117); Bilirubin,Total 0.4 mg/dl (0.2-1); Globulin 3.7 gm/dl (2.5-4.0); Phosphorus 2.5 mg/dl (2.5-4.9); Total Protein 6.6 gm/dl (6.4-8.2)
[2018-12-31] MEDS: DOCUSATE SODIUM/SENNA 50/8.6MG TAB PO SCH (07:34)
--- NOTE | 2018-12-31 08:14 | Surgery Progress Note ---
Date of Service December 31, 2018 Assessment & Plan (1) Acute cholecystitis: POD 1 lap preet ok for d/c if tolerates breakfast seen earlier by Dr. Perrin Subjective no complaints, had regular dinner Physical Exam Gastrointestinal (Abdomen): Inspection/Auscultation: + abdominal surgical incision (dry dressing) Percussion/Palpation: abdomen soft Results & Data Vital Signs (Past 12 Hours) Vital Signs Temp Pulse Pulse Resp BP Pulse Ox 12/31/18 07:50 36.5 C 75 16 110/66 97 12/31/18 03:03 36.3 C L 88 16 107/71 96 12/30/18 23:14 36.7 C 81 16 125/78 96 12/30/18 20:13 36.7 C 85 16 128/78 93
[2018-12-31] MEDS ORDERED: MAGNESIUM HYDROXIDE SUSP 30 ML UDC PO SCH (09:00)
[2018-12-31] MEDS ORDERED: PROPRANOLOL HCL LA 80 MG CAPCR PO SCH (09:00)
--- NOTE | 2019-01-02 02:38 | Discharge Summary ---
PRIMARY DISCHARGE DIAGNOSIS: Acute cholecystitis. SECONDARY DISCHARGE DIAGNOSES: 1. Depression. 2. Migraines. PROCEDURE PERFORMED: Laparoscopic cholecystectomy. HOSPITAL COURSE: The patient is a 48-year-old female who presented to the Emergency Department with epigastric pain, nausea and vomiting that began after eating chicken and egg salad. This was her third attack in the past month. CT showed cholelithiasis with inflammatory changes consistent with acute cholecystitis. She was taken to the operating room that afternoon for laparoscopic cholecystectomy. Procedure was well tolerated. She was transferred to the surgical floor for overnight observation. On postoperative day 1, she was tolerating regular diet and oral analgesics. Her abdomen was soft. Incisions were clean and dry. She was stable for discharge home. DISCHARGE INSTRUCTIONS: Discharge home. Follow up with Dr. Perrin in 1-2 weeks. DISCHARGE MEDICATIONS: [place] 1-2 tablets every 4 hours as needed, Keflex 500 mg p.o. t.i.d. x5 days. Can resume home medications, propranolol 80 mg daily, naproxen 500 mg b.i.d., and Lexapro 20 mg daily.
== END 2018-12-31 13:10 | disposition home or self-care (01) ==
LOC: ED 06:56 → 3W 06:56